=== PATIENT | male | born 1945 | race Caucasian/White ===

== ENCOUNTER 2018-02-20 21:45 | Emergency (ER) | payer OTHER ==
[2018-02-20 23:59] LABS: Absolute Lymphocytes (CBC) 0.5 K/uL (0.7-4.9); Absolute Monocytes 1.2 K/uL (0.1-1.3); Absolute Neutrophil 8.8 K/uL (1.8-8.0); Basophils % 0.2 % (0-1.3); Eosinophils % 1.6 % (0-4.4); Hematocrit 47.8 % (39.6-49.0); Lymphocytes % 4.9 % (15.3-44.8); MCH 32.1 pg (27.0-35.0); MCV 90.3 fL (80-100); MPV 9.3 fL (7.6-11.3); Monocytes % 11.6 % (3.3-12.3); RBC Red Blood Cell Count 5.29 M/uL (4.33-5.43)
[2018-02-21 00:32] LABS: Albumin 3.4 g/dL (3.4-5.0); Bilirubin Direct 0.3 mg/dL (0-0.2); Bilirubin Total 0.6 mg/dL (0.2-1.0); Protein, Total 7.5 g/dL (6.4-8.2)
--- NOTE | 2018-02-21 00:54 | ER ---
Nurse's Notes [facility] Name: Sahil Brown Age: 72 yrs Sex: Male : 1945 Arrival Date: 02/20/2018 Time: 21:46 Bed 17 Private MD: Eran Gibson Diagnosis: Diarrhea, unspecified Presentation: 02/20 21:53 Presenting complaint: Patient states: Reports that he has been having diarrhea off and aj1 on for the past 2 weeks, he has been belching a lot, feeling bloated and had a poor appetite as well. Patient denies vomiting. Transition of care: patient was not received from another setting of care. Onset of symptoms was January 2018. Risk Assessment: Do you want to hurt yourself or someone else? Patient reports no desire to harm self or others. Initial Sepsis Screen: Does the patient meet any 2 criteria? HR > 90 bpm. No. Patient's initial sepsis screen is negative. Does the patient have a suspected source of infection? Yes: Acute abdominal pain. Care prior to arrival: None. 21:53 Method Of Arrival: Ambulatory aj1 21:53 Acuity: DANICA 3 aj1 Triage Assessment: 21:57 General: Appears in no apparent distress. uncomfortable, Behavior is calm, cooperative, aj1 appropriate for age. Pain: Denies pain. Neuro: Level of Consciousness is awake, alert, obeys commands. Cardiovascular: Patient's skin is warm and dry. Respiratory: Airway is patent Respiratory effort is even, unlabored, Respiratory pattern is regular, symmetrical. GI: Parent/caregiver reports the patient having bloating, gaseousness, nausea. Historical: - Allergies: 21:57 Sulfa (Sulfonamide Antibiotics); aj1 21:57 Tetanus Vaccines \T\ Toxoid; aj1 - Home Meds: 21:57 levothyroxine 150 mcg tab 1 tab once daily [Active]; fenofibrate 160 mg oral tab 1 tab aj1 once daily [Active]; losartan 12.5 mg oral tab 1 tab 2 times per day [Active]; multivitamin oral oral daily [Active]; aspirin 81 mg Oral chew 1 tab once daily [Active]; - PMHx: 21:57 Hypothyroidism; Hypertension; aj1 - Immunization history:: Flu vaccine is not up to date. - Social history:: Smoking status: Patient/guardian denies using tobacco. - Ebola Screening: : Patient denies travel to an Ebola-affected area in the 21 days before illness onset. Screenin:41 Abuse screen: Denies threats or abuse. Denies injuries from another. Nutritional lp1 screening: No deficits noted. Tuberculosis screening: No symptoms or risk factors identified. Fall Risk None identified. Assessment: 22:40 General: Appears in no apparent distress. Behavior is appropriate for age. Pain: Denies lp1 pain. Neuro: Level of Consciousness is awake, alert, obeys commands, Oriented to person, place, time, situation. Cardiovascular: Patient's skin is warm and dry. Respiratory: Respiratory effort is even, unlabored. GI: Abdomen is distended, Bowel sounds present X 4 quads. Abd is soft and non tender X 4 quads. Reports bloating, diarrhea, gaseousness, indigestion. : No signs and/or symptoms were reported regarding the genitourinary system. EENT: No signs and/or symptoms were reported regarding the EENT system. Derm: Skin is pink, warm \T\ dry. Musculoskeletal: Circulation, motion, and sensation intact. 23:45 Reassessment: Patient appears in no apparent distress at this time. No changes from lp1 previously documented assessment. Patient and/or family updated on plan of care and expected duration. Pain level reassessed. 02/21 00:39 Reassessment: Patient appears in no apparent distress at this time. Patient resting, lp1 eyes closed, respirations unlabored. Vital Signs: 02/20 21:57 BP 102 / 84; Pulse 95; Resp 18; Temp 98.0; Pulse Ox 98% on R/A; Weight 83.46 kg (R); aj1 Height 5 ft. 7 in. (170.18 cm) (R); Pain 0/10; 23:00 BP 117 / 75; Pulse 94; Resp 18; Pulse Ox 98% on R/A; lp1 02/21 00:00 BP 122 / 74; Pulse 80; Resp 18; Pulse Ox 95% on R/A; lp1 02/20 21:57 Body Mass Index 28.82 (83.46 kg, 170.18 cm) aj1 ED Course: 02/20 21:46 Patient arrived in ED. es 21:46 Eran Gibson MD is Private Physician. es 21:55 Triage completed. aj1 21:57 Arm band placed on Patient placed in waiting room. aj1 22:21 Shala Perez, RN is Primary Nurse. lp1 22:34 Kit Poe MD is Attending Physician. gs 22:41 Patient has correct armband on for positive identification. Placed in gown. Bed in low lp1 position. Call light in reach. Pulse ox on. NIBP on. 23:06 Abdominal pain workup initiated per nursing protocol. lp1 23:25 Inserted saline lock: 20 gauge in right antecubital area, using aseptic technique. lp1 Blood collected. 02/21 00:53 Eran Gibson MD is Referral Physician. gs 01:04 No provider procedures requiring assistance completed. IV discontinued, No lp1 redness/swelling at site. Pressure dressing applied. Administered Medications: No medications were administered Outcome: 00:53 Discharge ordered by . gs 01:04 Discharged to home ambulatory, with significant other. lp1 01:04 Condition: good 01:04 Discharge instructions given to patient, significant other, Instructed on discharge instructions, follow up and referral plans. Demonstrated understanding of instructions, follow-up care. 01:05 Patient left the ED. lp1 Signatures: Fauzia Vo, RN RN aj1 Megha Stover Laura, RN RN lp1 Kit Poe MD MD
--- NOTE | 2018-02-21 00:55 | EDPHYS ---
Physician Documentation [facility] Name: Sahil Brown Age: 72 yrs Sex: Male : 1945 Arrival Date: 02/20/2018 Time: 21:46 Bed 17 Private MD: Eran Gibson ED Physician Kit Poe HPI: 02/21 01:50 This 72 yrs old Male presents to ER via Ambulatory with complaints of gs Abdominal Pain, Diarrhea. 01:50 Possible causes: unknown. The symptoms are aggravated by nothing. The symptoms are gs alleviated by nothing. Associated signs and symptoms: Pertinent positives: abdominal pain, cramps. Associated signs and symptoms: Pertinent negatives: fever, vomiting. Severity of symptoms: At their worst the symptoms were moderate in the emergency department the symptoms are unchanged. The patient has not experienced similar symptoms in the past. 01:53 Onset: The symptoms/episode began/occurred 2 week(s) ago. gs Historical: - Allergies: 02/20 21:57 Sulfa (Sulfonamide Antibiotics); aj1 21:57 Tetanus Vaccines \T\ Toxoid; aj1 - Home Meds: 21:57 levothyroxine 150 mcg tab 1 tab once daily [Active]; fenofibrate 160 mg oral tab 1 tab aj1 once daily [Active]; losartan 12.5 mg oral tab 1 tab 2 times per day [Active]; multivitamin oral oral daily [Active]; aspirin 81 mg Oral chew 1 tab once daily [Active]; - PMHx: 21:57 Hypothyroidism; Hypertension; aj1 - Immunization history:: Flu vaccine is not up to date. - Social history:: Smoking status: Patient/guardian denies using tobacco. - Ebola Screening: : Patient denies travel to an Ebola-affected area in the 21 days before illness onset. ROS: 02/21 01:50 All other systems are negative. gs Exam: 01:50 Head/Face: Normocephalic, atraumatic. Eyes: Pupils equal round and reactive to light, gs extra-ocular motions intact. Lids and lashes normal. Conjunctiva and sclera are non-icteric and not injected. Cornea within normal limits. Periorbital areas with no swelling, redness, or edema. ENT: Nares patent. No nasal discharge, no septal abnormalities noted. Tympanic membranes are normal and external auditory canals are clear. Oropharynx with no redness, swelling, or masses, exudates, or evidence of obstruction, uvula midline. Mucous membranes moist. Neck: Trachea midline, no thyromegaly or masses palpated, and no cervical lymphadenopathy. Supple, full range of motion without nuchal rigidity, or vertebral point tenderness. No Meningismus. Chest/axilla: Normal chest wall appearance and motion. Nontender with no deformity. No lesions are appreciated. Cardiovascular: Regular rate and rhythm with a normal S1 and S2. No gallops, murmurs, or rubs. Normal PMI, no JVD. No pulse deficits. Respiratory: Lungs have equal breath sounds bilaterally, clear to auscultation and percussion. No rales, rhonchi or wheezes noted. No increased work of breathing, no retractions or nasal flaring. Abdomen/GI: Soft, non-tender, with normal bowel sounds. No distension or tympany. No guarding or rebound. No evidence of tenderness throughout. Back: No spinal tenderness. No costovertebral tenderness. Full range of motion. Skin: Warm, dry with normal turgor. Normal color with no rashes, no lesions, and no evidence of cellulitis. MS/ Extremity: Pulses equal, no cyanosis. Neurovascular intact. Full, normal range of motion. Neuro: Awake and alert, GCS 15, oriented to person, place, time, and situation. Cranial nerves II-XII grossly intact. Motor strength 5/5 in all extremities. Sensory grossly intact. Cerebellar exam normal. Normal gait. 01:50 Constitutional: The patient appears alert, awake. Vital Signs: 02/20 21:57 BP 102 / 84; Pulse 95; Resp 18; Temp 98.0; Pulse Ox 98% on R/A; Weight 83.46 kg (R); aj1 Height 5 ft. 7 in. (170.18 cm) (R); Pain 0/10; 23:00 BP 117 / 75; Pulse 94; Resp 18; Pulse Ox 98% on R/A; lp1 02/21 00:00 BP 122 / 74; Pulse 80; Resp 18; Pulse Ox 95% on R/A; lp1 02/20 21:57 Body Mass Index 28.82 (83.46 kg, 170.18 cm) aj1 MDM: 02/20 23:18 Patient medically screened. 02/21 01:50 Differential diagnosis: gastritis, pancreatitis, viral gastroenteritis, gs gastroenteritis. Data reviewed: vital signs, nurses notes. Response to treatment: the patient's symptoms have markedly improved after treatment, no diarrhea explained results pt exam non tender says feels bloated no diarrhea for ed visitwill get sample for tomorrow, and as a result, I will discharge patient. 02/20 23:07 Order name: Basic Metabolic Panel; Complete Time: 00:34 lp1 02/20 23:07 Order name: CBC with Diff; Complete Time: 00:34 lp1 02/20 23:07 Order name: Creatinine for Radiology; Complete Time: 00:34 lp1 02/20 23:07 Order name: Hepatic Function; Complete Time: 00:34 lp1 02/20 23:07 Order name: Lipase; Complete Time: 00:34 lp1 02/20 23:07 Order name: IV Saline Lock; Complete Time: 23:26 lp1 02/20 23:07 Order name: Labs collected and sent; Complete Time: 23:26 lp1 Administered Medications: No medications were administered Disposition: 02/21/18 00:53 Discharged to Home. Impression: Diarrhea, unspecified. - Condition is Stable. - Discharge Instructions: Diarrhea, Adult. - Medication Reconciliation Form, Thank You Letter, Antibiotic Education, Prescription Opioid Use form. - Follow up: Erna Gibson MD; When: Today; Reason: Re-evaluation by your physician. Signatures: Dispatcher [employer] EDMS Fauzia Vo RN RN aj1 Shala Perez RN RN lp1 Kit Poe MD MD Corrections: (The following items were deleted from the chart) 01:05 00:53 02/21/2018 00:53 Discharged to Home. Impression: Diarrhea, unspecified. Condition lp1 is Stable. Forms are Medication Reconciliation Form, Thank You Letter, Antibiotic Education, Prescription Opioid Use. Follow up: Eran Gibson; When: Today; Reason: Re-evaluation by your physician. 01:53 01:50 Onset: The symptoms/episode began/occurred 4 day(s) ago, [facility]
== END 2018-02-21 01:05 | disposition home or self-care (01) ==
LOC: ER 21:45
DX: R19.7 Diarrhea, unspecified (principal); I10 Essential (primary) hypertension; E03.9 Hypothyroidism, unspecified; Z88.2 Allergy status to sulfonamides; Z88.7 Allergy status to serum and vaccine; Z79.82 Long term (current) use of aspirin
CPT/HCPCS: 36415; 80048; 80076; 83690; 85025; 99283

== ENCOUNTER 2018-12-25 10:31 | Emergency (ER) | payer OTHER ==
[2018-12-25 11:34] LABS: Absolute Lymphocytes (CBC) 1.5 K/uL (0.7-4.9); Basophils % 0.7 % (0-1.3); Hematocrit 42.2 % (39.6-49.0); Lymphocytes % 18.9 % (15.3-44.8); RBC Red Blood Cell Count 4.65 M/uL (4.33-5.43)
[2018-12-25 11:50] LABS: Potassium 3.5 mmol/L (3.5-5.1)
--- NOTE | 2018-12-25 12:24 | RAD REPORT ---
EXAM DESCRIPTION: RAD - Hand Right 3 View - 12/25/2018 11:46 am CLINICAL HISTORY: SWELLING COMPARISON: No comparisons FINDINGS: Degenerative changes are present in the region of the second metacarpal-phalangeal joint. 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 No acute fracture identifie d.
--- NOTE | 2018-12-25 12:54 | ER ---
Nurse's Notes [facility] Name: Sahil Brown Age: 73 yrs Sex: Male : 1945 Arrival Date: 12/25/2018 Time: 10:35 Bed 14 Private MD: Eran Gibson Diagnosis: Gout Presentation: 12/25 11:03 Presenting complaint: Patient states: Right hand pain and swelling that started 3 days aj1 ago. Patient reports that it started in his pinky finger and spread to his hand, now the pain has started radiating up his arm. Denies injury to area. Transition of care: patient was not received from another setting of care. Onset of symptoms was December 22, 2018. Risk Assessment: Do you want to hurt yourself or someone else? Patient reports no desire to harm self or others. Initial Sepsis Screen: Does the patient meet any 2 criteria? No. Patient's initial sepsis screen is negative. Does the patient have a suspected source of infection? No. Patient's initial sepsis screen is negative. Care prior to arrival: None. 11:03 Method Of Arrival: Ambulatory aj1 11:03 Acuity: DANICA 3 aj1 Triage Assessment: 11:06 General: Appears in no apparent distress. comfortable, Behavior is calm, cooperative, aj1 appropriate for age. Pain: Complains of pain in right hand. Historical: - Allergies: 11:06 Sulfa (Sulfonamide Antibiotics); aj1 11:06 Tetanus Vaccines \T\ Toxoid; aj1 - Home Meds: 11:06 aspirin 81 mg Oral chew 1 tab once daily [Active]; Vitamin C Oral daily [Active]; aj1 fenofibrate 160 mg Oral tab 1 tab once daily [Active]; losartan 12.5 mg Oral tab 1 tab 2 times per day [Active]; levothyroxine 150 mcg tab 1 tab once daily [Active]; multivitamin Oral daily [Active]; - PMHx: 11:06 Hypertension; Hypothyroidism; aj1 - Immunization history:: Flu vaccine is not up to date. - Social history:: Smoking status: Patient/guardian denies using tobacco. - Ebola Screening: : Patient denies travel to an Ebola-affected area in the 21 days before illness onset. Screenin:07 Abuse screen: Denies threats or abuse. Denies injuries from another. Nutritional aj1 screening: No deficits noted. Tuberculosis screening: No symptoms or risk factors identified. 12:54 Fall Risk None identified. aj1 Assessment: 11:07 General: Appears in no apparent distress. comfortable, Behavior is calm, cooperative, aj1 appropriate for age. Pain: Complains of pain in right hand Pain radiates to right arm Pain currently is 3 out of 10 on a pain scale. at worst was 10 out of 10 on a pain scale. Pain began 3 days ago Aggravated by repositioning. Neuro: Level of Consciousness is awake, alert, obeys commands, Oriented to person, place, time, situation. Cardiovascular: Patient's skin is warm and dry. Respiratory: Airway is patent Respiratory effort is even, unlabored, Respiratory pattern is regular, symmetrical. GI: No signs and/or symptoms were reported involving the gastrointestinal system. : No signs and/or symptoms were reported regarding the genitourinary system. EENT: No signs and/or symptoms were reported regarding the EENT system. Derm: No signs and/or symptoms reported regarding the dermatologic system. Skin is pink, warm \T\ dry. normal. Musculoskeletal: Capillary refill < 3 seconds, in right fingers. Range of motion: intact in all extremities, Swelling present in right hand. 12:10 Reassessment: Patient appears in no apparent distress at this time. No changes from aj1 previously documented assessment. Patient and/or family updated on plan of care and expected duration. Pain level reassessed. Patient is alert, oriented x 3, equal unlabored respirations, skin warm/dry/pink. Vital Signs: 10:49 BP 129 / 86; Pulse 63; Resp 18; Temp 97.6; Pulse Ox 98% on R/A; em1 11:07 Weight 83.46 kg (R); Height 5 ft. 7 in. (170.18 cm) (R); aj1 12:14 BP 132 / 76; Pulse 52; Resp 18; Pulse Ox 95% on R/A; aj1 11:07 Body Mass Index 28.82 (83.46 kg, 170.18 cm) aj1 ED Course: 10:35 Patient arrived in ED. mr 10:36 Eran Gibson MD is Private Physician. mr 10:44 Trenton Zarco PA is PHCP. jmm 10:45 Angel Li MD is Attending Physician. jm 11:03 Fauzia Vo, RN is Primary Nurse. aj1 11:04 Triage completed. aj1 11:06 Arm band placed on. aj1 11:07 Patient has correct armband on for positive identification. Bed in low position. Call aj1 light in reach. Side rails up X 1. 11:07 No provider procedures requiring assistance completed. aj1 11:28 Initial lab(s) drawn, by me, sent to lab. em1 11:46 X-ray completed. Portable x-ray completed in exam room. Patient tolerated procedure jb2 well. 11:48 Hand Right 3 View XRAY In Process Unspecified. EDMS 12:53 Filemon Powers MD is Referral Physician. jm 12:53 Velcro wrist splint applied to right wrist. aj1 12:54 Patient did not have IV access during this emergency room visit. aj1 Administered Medications: No medications were administered Outcome: 12:54 Discharge ordered by MD. [facility] 13:06 Discharged to home ambulatory. aj1 13:06 Condition: good 13:06 Discharge instructions given to patient, Instructed on discharge instructions, follow up and referral plans. medication usage, Demonstrated understanding of instructions, follow-up care, medications, Prescriptions given X 1. 13:06 Patient left the ED. aj Signatures: Dispatcher [employer] EDCA Fauzia Vo, RN RN aj1 Trenton Zarco PA PA jmm Rivera, Mary mr NelsonDeangelo jb2 Michi Delgadillo em1
--- NOTE | 2018-12-25 12:55 | EDPHYS ---
Physician Documentation [facility] Name: Sahil Brown Age: 73 yrs Sex: Male : 1945 Arrival Date: 12/25/2018 Time: 10:35 Bed 14 Private MD: Eran Gibson ED Physician Angel Li HPI: 12/25 11:04 This 73 yrs old Male presents to ER via Ambulatory with complaints of Hand jmm Pain. 11:04 The patient or guardian reports swelling. Onset: The symptoms/episode began/occurred jmm gradually, 3 day(s) ago. Modifying factors: The symptoms are alleviated by nothing, the symptoms are aggravated by nothing. This is a 73 year old female with a history of htn, hypothyroidism that presents to the ED with complaints of right hand swelling beginning approx 3 days ago beginning in his 5th finger. Swelling is now diffuse. Patient denies fever or pain. 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 . Historical: - Allergies: 11:06 Sulfa (Sulfonamide Antibiotics); aj1 11:06 Tetanus Vaccines \T\ Toxoid; aj1 - Home Meds: 11:06 aspirin 81 mg Oral chew 1 tab once daily [Active]; Vitamin C Oral daily [Active]; aj1 fenofibrate 160 mg Oral tab 1 tab once daily [Active]; losartan 12.5 mg Oral tab 1 tab 2 times per day [Active]; levothyroxine 150 mcg tab 1 tab once daily [Active]; multivitamin Oral daily [Active]; - PMHx: 11:06 Hypertension; Hypothyroidism; aj1 - Immunization history:: Flu vaccine is not up to date. - Social history:: Smoking status: Patient/guardian denies using tobacco. - Ebola Screening: : Patient denies travel to an Ebola-affected area in the 21 days before illness onset. ROS: 11:04 Constitutional: Negative for fever, chills, and weight loss, Cardiovascular: Negative jmm for chest pain, palpitations, and edema, Respiratory: Negative for shortness of breath, cough, wheezing, and pleuritic chest pain, Abdomen/GI: Negative for abdominal pain, nausea, vomiting, diarrhea, and constipation. 11:04 MS/extremity: Positive for swelling. 11:04 All other systems are negative. Exam: 11:04 Constitutional: This is a well developed, well nourished patient who is awake, alert, jmm and in no acute distress. Head/Face: atraumatic. Eyes: EOMI, no conjunctival erythema appreciated ENT: Moist Mucus Membranes Neck: Trachea midline, Supple Chest/axilla: Normal chest wall appearance and motion. Cardiovascular: Regular rate and rhythm. No edema appreciated Respiratory: Normal respirations, no respiratory distress appreciated Abdomen/GI: Non distended, soft Back: Normal ROM 11:04 Musculoskeletal/extremity: swelling noted to the right hand, non tender to palpation, FROM appreciated, pronounced swelling noted to the right 2nd MCP, < 2 sec dist cap refill, NVI. 11:04 Skin: Appearance: Color: normal in color. 11:04 Neuro: Orientation: is normal, Mentation: is normal, Memory: is normal. 11:04 Psych: Behavior/mood is pleasant, cooperative. Vital Signs: 10:49 BP 129 / 86; Pulse 63; Resp 18; Temp 97.6; Pulse Ox 98% on R/A; em1 11:07 Weight 83.46 kg (R); Height 5 ft. 7 in. (170.18 cm) (R); aj1 12:14 BP 132 / 76; Pulse 52; Resp 18; Pulse Ox 95% on R/A; aj1 11:07 Body Mass Index 28.82 (83.46 kg, 170.18 cm) [facility] MDM: 10:52 Patient medically screened. [facility] 12:52 Data reviewed: vital signs, nurses notes. Counseling: I had a detailed discussion with [facility] the patient and/or guardian regarding: the historical points, exam findings, and any diagnostic results supporting the discharge/admit diagnosis, lab results, radiology results, the need for outpatient follow up, to return to the emergency department if symptoms worsen or persist or if there are any questions or concerns that arise at home. ED course: Mild erythema noted to the right 5th finger. Patient will be treated with oral abx. Patient does have a history of gout. [place] films appear consistent with a chronic inflammatory process. Patient advised to follow up with hand surgery and otherwise given strict return precautions. patient understood and agrees with the plan of care. . 12/25 11:03 Order name: CBC with Diff; Complete Time: 11:51 [facility] 12/25 11:03 Order name: BMP; Complete Time: 11:51 [facility] 12/25 11:03 Order name: Hand Right 3 View XRAY; Complete Time: 12:27 [facility] 12/25 11:03 Order name: Saline Lock; Complete Time: 11:41 [facility] 12/25 12:39 Order name: Wrist Splint; Complete Time: 12:53 [facility] Administered Medications: No medications were administered Disposition: 16:03 Co-signature as Attending Physician, Angel Li MD. rn Disposition: 12/25/18 12:54 Discharged to Home. Impression: Gout. - Condition is Stable. - Discharge Instructions: Gout. - Prescriptions for Doxycycline Hyclate 100 mg Oral Tablet - take 1 tablet by ORAL route every 12 hours; 20 tablet. - Medication Reconciliation Form, Thank You Letter, Antibiotic Education, Prescription Opioid Use form. - Follow up: Filemon Powers MD; When: 2 - 3 days; Reason: Recheck today's complaints, Continuance of care, Re-evaluation by your physician. Signatures: Dispatcher [employer] EDFauzia Gonzáles RN RN aj1 Trenton Zarco PA PA [facility] Angel Li MD MD rn delivery: (The following items were deleted from the chart) 13:06 12:54 12/25/2018 12:54 Discharged to Home. Impression: Gout. Condition is Stable. Forms aj1 are Medication Reconciliation Form, Thank You Letter, Antibiotic Education, Prescription Opioid Use. Follow up: Filemon Powers; When: 2 - 3 days; Reason: Recheck today's complaints, Continuance of care, Re-evaluation by your physician. [facility]
== END 2018-12-25 13:06 | disposition home or self-care (01) ==
LOC: ER 10:31
DX: M10.9 Gout, unspecified (principal); I10 Essential (primary) hypertension; E03.9 Hypothyroidism, unspecified; Z88.2 Allergy status to sulfonamides; Z88.7 Allergy status to serum and vaccine
CPT/HCPCS: 36415; 80048; 85025

== ENCOUNTER 2023-05-25 06:27 | Day surgery (SDC) | payer OTHER ==
--- NOTE | 2023-05-23 13:59 | RAD REPORT ---
EXAM DESCRIPTION: RAD - Chest Pa And Lat (2 Views) - 05/23/2023 1:51 pm CLINICAL HISTORY: Pre op pending hernia repair/hypertension Chest pain. COMPARISON: No comparisons TECHNIQUE: PA and lateral views of the chest were obtained. FINDINGS: The lungs are hyperexpanded compatible with COPD. The heart is upper limit of normal in si ze. No fracture or aggressive bony process. IMPRESSION: COPD without acute process identified. The USPSTF recommends annual screening for lung cancer with low-dose CT (LDCT) in adults aged 50 to 8 0 years who have a 20 pack-year smoking history and currently smoke or have quit within the past 15 y ears.
[2023-05-23 14:20] LABS: Absolute Lymphocytes (CBC) 1.7 K/uL (0.7-4.9); Hematocrit 39.1 % (39.6-49.0); Lymphocytes % 27.9 % (15.3-44.8); MCV 87.3 fL (80-100); Platelets 143 thou/uL (152-406); RBC Red Blood Cell Count 4.48 M/uL (4.33-5.43)
[2023-05-23 14:30] LABS: Potassium 3.4 mEq/L (3.5-5.1)
--- NOTE | 2023-05-24 13:22 | EKG ---
Test Date: 2023-05-23 Test Time: 14:31:44 Director Talent: MUKUND MEASUREMENT RESULTS: Intervals: Rate: 49 [place]: 196 QRSD: 96 QT: 402 QTc: 363 [place]: P: 79 [place]: 196 QRS: 6 T: 75 INTERPRETIVE STATEMENTS: Marked sinus bradycardia Abnormal ECG No previous ECG available for comparison Electronically Signed On 05-24-23 13:19:38 TECHNICAL CLERK by Leonides Farah
[2023-05-25] MEDS ORDERED: Ringers Lactate 1,000 ML IV ONE (06:41)
[2023-05-25] MEDS ORDERED: CEFAZOLIN SODIUM 2 GM/VIAL ONE (06:41)
[2023-05-25] MEDS ORDERED: BUPIVACAINE 0.5% PF 10 ML VIAL ONE (07:05)
[2023-05-25] MEDS ORDERED: ROCURONIUM 50 MG/5 ML VIAL IV ONE (07:27)
[2023-05-25] MEDS ORDERED: propofoL 200 MG/20 ML VIAL IV ONE (07:27)
[2023-05-25] MEDS ORDERED: FENTANYL CITR 100 MCG/2 ML ONE (07:27)
[2023-05-25] MEDS ORDERED: LIDOCAINE 1% MPF 5 ML VIAL ONE (07:27)
[2023-05-25] MEDS ORDERED: ONDANSETRON 4 MG/2 ML VIAL ONE ×2 (07:27→08:15)
[2023-05-25] MEDS ORDERED: MIDAZOLAM HCL 2 MG/2 ML INJ ONE (07:28)
[2023-05-25] MEDS ORDERED: KETOROLAC 30 MG/ML INJ ONE (08:15)
[2023-05-25] MEDS ORDERED: dexAMETHasone 4 MG/ML VIAL ONE (08:15)
[2023-05-25] MEDS ORDERED: GLYCOPYRROLATE 0.2 MG/ML SYR ONE ×3 (08:38)
[2023-05-25] MEDS ORDERED: NEOSTIGMINE 1 MG/ML -10 ML VIAL ONE (08:38)
--- NOTE | 2023-05-25 08:50 | P.OP ---
Date of Service: 05/25/23 Preop diagnosis: Left inguinal hernia Postop diagnosis: Same Procedure performed: Repair left inguinal hernia Surgeon: Godfrey Santamaria MD Lever Operator: Rosaline Kilpatrick Estimated blood loss: Minimal Specimen: Hernia sac and cord lipoma Findings: As above Anesthesia: General Complications: None Drains: None Fluids and blood products: Nonapplicable Disposition: Recovery room Operative note: Patient brought to the OR and placed in the supine position. General anesthesia begun. Patient prepped and draped in the usual sterile fash ion. Marcaine 0.5% infiltrated in a field block fashion in the left groin. Then 15 blade used to make a 4 cm oblique incision between the pubic tubercle and the anterior iliac superior spine. Subcutaneous tissue divided and bleeding controlled cautery. Jillian's fascia identified and divided. Aponeurosis of the external abdominal oblique muscle identified and mobilized inferiorly to expose the shelving edge. The external ring opened. Ilioinguinal nerve identified and retracted out of the field of dissection. Cord structures mobilized at the pubic tubercle. Cord skeletonized. A large indirect sac and small cord lipoma identified. 2-0 Prolene used to excise the hernia sac with a high ligation. Hernia sac sent to pathology as specimen. Lipoma sent to pathology as specimen as well. Marlex mesh plug placed in the internal ring and secured with VersaTack stapler. Onlay mesh placed in inguinal floor and secured medially to the pubic tubercle, superiorly to the conjoined tendon, inferiorly to the shelving edge and laterally to each other. Cord structures and ilioinguinal nerve placed back in their anatomic location. 2-0 Prolene used to close the aponeurosis. 3-0 chromic used to close Jillian's fascia. Staple used to close skin. Sterile dressing applied. Patient awakened and taken to recovery room in good general condition. CC: Dr. Gibson's office
[2023-05-25] MEDS ORDERED: HYDROCODONE/APAP 7.5/325 MG TAB PO PRN (08:52)
[2023-05-25 10:20] VITALS: BP 104/57; TEMP 97.1; O2SAT 99
== END 2023-05-25 13:35 | disposition home or self-care (01) ==
LOC: OR 06:27
PROVIDERS: ATTEND Surgery
PROC: 0YU60JZ Supplement Left Inguinal Region with Synthetic Substitute, Open Approach (ICD-10-PCS; principal; 2023-05-25 07:30)
DX: K40.90 Unilateral inguinal hernia, without obstruction or gangrene, not specified as recurrent (principal); I10 Essential (primary) hypertension; E03.9 Hypothyroidism, unspecified; E78.5 Hyperlipidemia, unspecified; M19.90 Unspecified osteoarthritis, unspecified site
CPT/HCPCS: 93005; 85025; 80048; 36415; 88302; 71046; 49505; J2704; J1100; J2710; J2001; J2250; J3010; J2405; J7120

== ENCOUNTER 2023-06-01 07:28 | Day surgery (SDC) | payer OTHER ==
[2023-06-01] MEDS ORDERED: BUPIVACAINE 0.5% PF 10 ML VIAL ONE (07:35)
[2023-06-01] MEDS ORDERED: Ringers Lactate 1,000 ML IV ONE (07:47)
[2023-06-01] MEDS ORDERED: CEFOXITIN SODIUM 1 GM/VIAL ONE (07:47)
[2023-06-01] MEDS ORDERED: FENTANYL CITR 100 MCG/2 ML ONE (08:42)
[2023-06-01] MEDS ORDERED: propofoL 200 MG/20 ML VIAL IV ONE (08:42)
[2023-06-01] MEDS ORDERED: LIDOCAINE 2% MPF 5 ML VIAL ONE (08:42)
[2023-06-01] MEDS ORDERED: MIDAZOLAM HCL 2 MG/2 ML INJ ONE (08:42)
[2023-06-01] MEDS ORDERED: dexAMETHasone 4 MG/ML VIAL ONE (09:19)
[2023-06-01] MEDS ORDERED: KETOROLAC 30 MG/ML INJ ONE (09:19)
[2023-06-01] MEDS ORDERED: ONDANSETRON 4 MG/2 ML VIAL ONE (09:19)
--- NOTE | 2023-06-01 09:55 | P.OP ---
Date of Service: 06/01/23 Preop diagnosis: Thrombosed hemorrhoid Postop diagnosis: Complex internal and external thrombosed hemorrhoid Procedure performed: EUA, rigid proctoscopy and complex hemorrhoidectomy Surgeon: Godfrey Santamaria MD Cement Cutter: None Estimated blood loss: Minimal Specimen: Anterior midline complex hemorrhoid Findings: As above Anesthesia: General Complications: None Drains: None Fluids and blood products: Nonapplicable Disposition: Recovery room Operative note: Patient brought to the OR and placed in supine position. General anesthesia began. Patient placed in lithotomy position. Patient prepped and draped in usual sterile fashion. Examiner under anesthesia and proctoscopy performed. It revealed a large thrombosed external and internal hemorrhoid. Marcaine 0.5% for postop pain control. Harmonic scalpel used to excise the thrombosed hemorrhoid. Bleeding controlled with cautery anal pack consisting of Gelfoam Surgicel and Vaseline gauze placed in the anal canal. Sterile dressing applied. Patient awakened and taken to recovery room in good general condition. CC: Dr. Gibson'jeramy
[2023-06-01] MEDS ORDERED: HYDROCODONE/APAP 7.5/325 MG TAB PO PRN (09:57)
[2023-06-01] MEDS: FENTANYL CITR 100 MCG/2 ML ONE ×2 (10:41→10:46)
[2023-06-01 12:14] VITALS: BP 129/76; TEMP 97; O2SAT 100
== END 2023-06-01 11:50 | disposition home or self-care (01) ==
LOC: OR 07:28
PROVIDERS: ATTEND Surgery
PROC: 06BY0ZC Excision of Hemorrhoidal Plexus, Open Approach (ICD-10-PCS; 2023-06-01)
PROC: 0DJD8ZZ Inspection of Lower Intestinal Tract, Via Natural or Artificial Opening Endoscopic (ICD-10-PCS; principal; 2023-06-01 08:30)
DX: K64.5 Perianal venous thrombosis (principal); I10 Essential (primary) hypertension; E78.00 Pure hypercholesterolemia, unspecified
CPT/HCPCS: 88304; 45300; 46255; J2704; J1100; J2001; J2250; J3010 ×2; J0694; J2405; J7120